=== PATIENT | female | born 2000 | race Caucasian/White ===

== ENCOUNTER → 2024-11-18 | Outpatient (CLI) | payer BC ==
--- NOTE | 2024-11-18 07:59 | USB ---
Reason for Exam: Follow-up at short interval from prior study. Technique: Method: Targeted. Findings: The lower outer quadrant of the left breast, the axilla of the left breast and the retroareolar of the left breast were scanned. Targeted ultrasound left breast lower outer quadrant 3:00 to 6:00 including scanning of the subareolar region and axilla. Dense tissue is present throughout. There is a lobule of dense tissue measuring 1.3 x 0.3 cm which seems to match the configuration of patchy dense tissue that was measured on the patient's outside prior from [place]. Measurements on that outside prior were 1.2 x 0.5 cm. No solid or cystic lesion or axillary lymphadenopathy are seen. Overall Assessment: Benign, BI-RAD 2 Management: Screening Mammogram of both breasts at age 41. Unless there is a clinical indication to start sooner. Also, further clinical management of any suspicious palpable areas. The patient can continue with self breast exams. Any new or enlarging palpable area can be rescanned. Results were given to the patient verbally at the time of exam. [facility], , 11/18/2024 7:56 AM. Electronically signed and approved by: Cristina Gill M.D. Radiologist
== END | disposition home or self-care (01) ==
LOC: RADMAMWWP 07:11
PROVIDERS: ATTEND Family Medicine
DX: N63.0 Unspecified lump in unspecified breast (principal)